=== PATIENT | female | born 1955 | race Two or more races ===

== ENCOUNTER 2020-08-17 08:57 | Emergency (ER) | payer BC ==
[~2020-08-17] VITALS: Ht 144.8 cm; Wt 68.0 kg
[2020-08-17 09:24] LABS: Urine WBC None Seen /hpf (0 - 5)
[2020-08-17 09:35] LABS: Basophils # (auto) 0 10 ^3/uL (0-0.2); Basophils % (auto) 0.4 % (0.0-2.0); Eosinophils # (auto) 0 10 ^3/uL (0-0.8); Eosinophils % (auto) 0.2 % (0.0-7.0); Hematocrit 38.5 % (36.0-46.0); Hemoglobin 13.7 g/dL (12.2-16.2); Lymphocytes % (auto) 18.6 % (10.0-50.0); Mean Corpuscular Hemoglobin 31.8 pg (28.0-32.0); Mean Corpuscular Hgb Conc. 35.6 g/dL (32.0-36.0); Mean Corpuscular Volume 89.3 fL (80.0-100.0); Monocytes # (auto) 0.2 10 ^3/uL (0-1.3); Monocytes % (auto) 4.8 % (0.0-12.0); Neutrophils # (auto) 3.9 10 ^3/uL (1.6-8.6); Nucleated Red Blood Cells % 0.1 %; Platelet Count (auto) 168 10^3/uL (140-450); Red Blood Cells 4.31 10^6/uL (4.0-5.20); White Blood Cell 5.1 10^3/uL (4.4-10.8)
[2020-08-17 09:50] LABS: Albumin 3.9 g/dL (3.4-5.0); Calcium 8.4 mg/dL (8.5-10.1); Potassium 4.1 mmol/L (3.5-5.1)
[2020-08-17 09:51] LABS: Urine Amorphous Crystal FEW /hpf (None Seen); Urine Bacteria NONE SEEN /hpf (None Seen); Urine Blood 1+ /uL (Negative)
[2020-08-17 09:54] LABS: BUN/Creatinine Ratio 43.5; Bilirubin, Total 0.7 mg/dL (0.2-1.0); Total Protein 7.7 g/dL (6.4-8.2)
[2020-08-17 10:30] VITALS: BP 143/79
== END 2020-08-17 12:19 | disposition home or self-care (01) ==
LOC: ER 08:57
DX: M54.16 Radiculopathy, lumbar region (principal); I31.1 Chronic constrictive pericarditis; M51.46 Schmorl's nodes, lumbar region; Z90.49 Acquired absence of other specified parts of digestive tract; Z90.710 Acquired absence of both cervix and uterus
CPT/HCPCS: 36415; 74176; 80053; 81001; 85025

== ENCOUNTER 2022-07-11 05:54 | Emergency (ER) | payer BC, OTHER ==
[~2022-07-11] VITALS: Ht 144.8 cm; Wt 68.9 kg
[2022-07-11 07:13] VITALS: BP 143/81
[2022-07-11 07:21] LABS: Urine Bacteria NONE SEEN /hpf (None Seen); Urine Blood Negative /uL (Negative); Urine Hyaline Cast FEW /lpf (0 - 2); Urine Mucus FEW (None Seen); Urine Specific Gravity 1.025 (1.001-1.035); Urine WBC 2 /hpf (0 - 5)
[2022-07-11] MEDS ORDERED: ONDANSETRON ODT 4 MG TAB PO ONE (07:30)
[2022-07-11] MEDS ORDERED: SODIUM CHLORIDE 0.9% 1,000 ML IV ONE (07:45)
[2022-07-11 08:06] LABS: Basophils # (auto) 0 10 ^3/uL (0-0.2); Basophils % (auto) 0.3 % (0.0-2.0); Eosinophils # (auto) 0 10 ^3/uL (0-0.8); Eosinophils % (auto) 0.1 % (0.0-7.0); Hematocrit 42.7 % (36.0-46.0); Lymphocytes # (auto) 1.1 10 ^3/uL (0.4-5.4); Lymphocytes % (auto) 14.7 % (10.0-50.0); Mean Corpuscular Hemoglobin 29.4 pg (28.0-32.0); Mean Corpuscular Hgb Conc. 32.7 g/dL (32.0-36.0); Mean Corpuscular Volume 89.9 fL (80.0-100.0); Monocytes # (auto) 0.3 10 ^3/uL (0-1.3); Monocytes % (auto) 4.2 % (0.0-12.0); Neutrophils # (auto) 5.8 10 ^3/uL (1.6-8.6); Neutrophils % (auto) 80.7 % (37.0-80.0); Nucleated Red Blood Cells % 0.1 %; Red Blood Cells 4.75 10^6/uL (4.0-5.20); Red Cell Distribution Width 13.6 % (11.8-14.3); White Blood Cell 7.2 10^3/uL (4.4-10.8)
[2022-07-11 08:28] LABS: Calcium 9.2 mg/dL (8.5-10.1); Potassium 4.2 mmol/L (3.5-5.1)
[2022-07-11 08:31] LABS: Bilirubin, Total 0.5 mg/dL (0.2-1.0); Total Protein 7.7 g/dL (6.4-8.2)
[2022-07-11] MEDS ORDERED: ACETAMINOPHEN 500 MG TAB PO ONE (08:45)
[2022-07-11] MEDS ORDERED: ONDA-144 PO (09:02)
[2022-07-11] MEDS ORDERED: ACET1CAP14 PO (09:02)
== END 2022-07-11 09:40 | disposition home or self-care (01) ==
LOC: ER 05:54
DX: A05.9 Bacterial foodborne intoxication, unspecified (principal); J06.9 Acute upper respiratory infection, unspecified; Z90.49 Acquired absence of other specified parts of digestive tract; Z90.710 Acquired absence of both cervix and uterus
CPT/HCPCS: 36415; 80053; 81001; 83690; 85025; 96360; 99283; J7030; Q0162

== ENCOUNTER 2024-08-24 08:04 | Outpatient (CLI) | payer OTHER ==
[~2024-08-24 08:04] MED LIST: ACET1CAP14 PO; ONDA-144 PO
--- NOTE | 2024-08-25 18:46 | DVH ---
Procedure: NM BONE WHOLE BODY Exam Date: 08/24/2024 12:25 PM Reason for study/Clinical History: SECONDARY AND UNSPECIFIED Comparison Study: None Prior correlative imaging: None Nuclear Medicine Whole Body Bone Scan Technique: Following the intravenous administration of 25 mCi of technetium 99 MDP millicuries of technetium 99m labeled MDP, whole body images in the anterior and posterior projections were obtained 3 hours follo wing the administration of radiopharmaceutical. Findings: There is mild symmetric multifocal activity overlying both shoulders consistent with mild degenerativ e change. The expected mild activity is noted overlying both kidneys and the bladder without evidence of obstru ction. Impression: 1. Increased uptake in the mid cervical spine. Correlate with radiographs of the cervical spine to ex clude degenerative arthritic changes. HS:Y
== END 2024-08-24 17:00 | disposition home or self-care (01) ==
LOC: XYW 08:04
PROVIDERS: ATTEND Internal Medicine Hematology & Oncology
DX: C79.9 Secondary malignant neoplasm of unspecified site (principal); M47.812 Spondylosis without myelopathy or radiculopathy, cervical region
CPT/HCPCS: 78306; A9503